=== PATIENT | male | born 1945 | race Caucasian/White ===

== ENCOUNTER → 2019-08-22 14:46 | Outpatient (CLI) | payer MEDICARE, OTHER, SELFPAY ==
--- NOTE | 2019-08-22 | DI.ECHO.S_ITS ---
[place] +---------+ [facility] +---------+ : : [address] : : : : [id number] : : : : Phone: [phone]---------+ Echocardiogram Report + + :Name: ROBERTO HALEY Study Date: 08/22/2019 Height: 73 in : :[facility] Weight: 260 lb : : Gender: Male BSA: 2.4 m2 : :: 1945 Age: 74 yrs BP: 126/82 mmHg: :Reason For Study: Arrhythmia, PVCs : :Ordering Physician: Victoriano Diaz : :Shruti Henry Performed By: Dawn Mi : :Referring: Dr. Garett Haddad : + + Interpretation Summary The patient was in atrial fibrillation with heart rates between 61-85 bpm during the exam. The left ventricle is normal in size. The ejection fraction is estimated to be 60-65%. The right ventricle is grossly normal size. Right ventricular systolic function is at the lower limits of normal. The aortic valve is mildly calcified. There is mildly reduced leaflet mobility. The aortic valve area is 1.7 centimeters squared by planimetry. Ao V2 max: 169.6 cm/sec Ao mean P.3 mmHg There is no hemodynamically significant valvular aortic stenosis. In comparison to previous study aortic stenosis is new. There is mild tricuspid regurgitation. The right ventricular systolic pressure is estimated to be at least 31 mmHg based on an estimated right atrial pressure of 8 mm Hg. The ascending aorta is mildly enlarged. Ascending aorta 3.7 cm in diameter. Previously it was 3.8 cm. There is aortic root sclerosis/calcification. Procedure: A two-dimensional transthoracic echocardiogram with color flow and Doppler was performed. The study quality was technically adequate. Comparison is made with the echocardiogram of 05-19-15. The patient was in atrial fibrillation with heart rates between 61-85 bpm during the exam. Left Ventricle: The left ventricle is normal in size. Proximal septal thickening is noted. There is no echo evidence for significant left ventricular outflow tract obstruction. There is no thrombus. The ejection fraction is estimated to be 60-65%. There has been no significant change since the previous study. There are no focal wall motion abnormalities. Septal motion is consistent with conduction abnormality. Diastolic function could not be accurately assessed due to atrial fibrillation. Right Ventricle: The right ventricle is grossly normal size. Right ventricular systolic function is at the lower limits of normal. Atria: The left atrium is severely dilated. The left atrium has significantly increased in size since the prior echo exam. Right atrial size is normal. Mitral Valve: The mitral valve leaflets appear mildly thickened, but open well. There is mild mitral annular calcification. The mitral valve leaflets are slightly calcified. There is trace mitral regurgitation. Aortic Valve: The aortic valve is trileaflet. The aortic valve is mildly calcified. There is mildly reduced leaflet mobility. The aortic valve area is 1.7 centimeters squared by planimetry. Ao V2 max: 169.6 cm/sec Ao mean P.3 mmHg. There is no hemodynamically significant valvular aortic stenosis. No aortic regurgitation is present. Tricuspid Valve: The tricuspid valve is normal. The right ventricular systolic pressure is estimated to be at least 31 mmHg based on an estimated right atrial pressure of 8 mm Hg. There is mild tricuspid regurgitation. Pulmonic Valve: The pulmonic valve is not well seen, but is grossly normal. There is trace pulmonic regurgitation. Great Vessels: The aortic root is normal size. There is aortic root sclerosis/calcification. The ascending aorta is mildly enlarged. The aortic arch is at the upper limits of normal in size. The IVC is dilated (diameter is greater than 2.1 cm) yet it collapses greater than 50% with a sniff. This suggests a right atrial pressure of 8 mm Hg. Pericardium/ Pleura There is no pericardial effusion. There is no pleural effusion. MMode/2D Measurements & Calculations LVIDd: 4.9 cm Ao root diam: 3.7 cm LVIDs: 2.7 cm Aortic Jxn: 2.5 cm FS: 44.5 % asc Aorta Diam: 3.7 cm EPSS: 1.2 cm Ao Arch Diam (Prox Trans): 3.2 cm IVSd: 1.0 cm LVPWd: 1.0 cm LV short. diameter/BSA (cm/m^2): 2.0 LV sys. diameter/BSA (cm/m^2): 1.1 LA dimension: 5.2 cm RA long axis: 5.8 cm LA A2 area: 36.2 cm2 RA area: 19.7 cm2 LA A4 area: 33.2 cm2 RA vol: 56.4 ml LA length (vol): 7.4 cm RA : 23.5 ml/m2 LA vol: 137.6 ml IVC diam: 2.2 cm LA vol index: 57.2 ml/m2 JOSE (plan): 1.7 cm2 Doppler Measurements & Calculations Ao V2 max: 169.6 cm/sec LVOT Max Lukasz: 64.9 cm/sec Ao V2 mean: 118.7 cm/sec LV V1 max P.7 mmHg Ao max P.5 mmHg LV V1 VTI: 11.7 cm Ao mean P.3 mmHg sev ratio: 0.35 Ao V2 VTI: 33.6 cm MV P1/2t: 72.5 msec TR max lukasz: 240.1 cm/sec MVA(traced): 1.8 cm2 TR max P.1 mmHg PA V2 max: 57.5 cm/sec PA V2 mean: 36.4 cm/sec PA mean P.62 mmHg PA Accel Time: 0.07 sec MV V2 mean: 58.7 cm/sec MV P1/2t max lukasz: 110.4 cm/sec MV mean P.9 mmHg MVA(P1/2t): 3.0 cm2 MV V2 VTI: 18.6 cm Reading Physician:01:09 PM
== END ==
PROVIDERS: PCP Family Medicine; Visit Provider Internal Medicine Cardiovascular Disease
DX: I07.1 Rheumatic tricuspid insufficiency (principal); I49.3 Ventricular premature depolarization; I77.89 Other specified disorders of arteries and arterioles
CPT/HCPCS: 93306

== ENCOUNTER → 2019-10-17 09:02 | Outpatient (CLI) | payer MEDICARE, OTHER, SELFPAY ==
--- NOTE | 2019-10-17 | DI.NM.S_ITS ---
PROCEDURE: NM JERRELL PERF SPECT REST & STR Rest and exercise stress myocardial perfusion SPECT with gated imaging and ejection fraction RADIOPHARMACEUTICAL: 25.8 mCi Tc-99m tetrafosmin IV at rest and 24.2 mCi Tc-99m tetrafosmin IV at peak effect of pharmacological stress. [id number] was performed. INDICATIONS: Ventricular premature depolarization TECHNIQUE: Radiopharmaceutical was injected at peak stress test, and also at rest. SPECT images were obtained. SPECT myocardial perfusion images were displayed in short axis, horizontal long axis, and vertical long axis views. Gated images were reviewed using [employer] software. COMPARISON: None. CARDIAC STRESS: Hemodynamic data: The patient exercised for 4 minutes and 33 seconds and reached target heart rate. There is normal blood pressure and heart rate response to pharmacologic stress. Symptoms: The patient denied anginal chest pain. EKG: Atrial fibrillation present throughout the entire study. No diagnostic changes of ischemia. FINDINGS: Raw data: There is good myocardial uptake of radiotracer. No significant motion artifacts. Zxne-mk-nlffd ratio is 0.32 (normal is less than 0.38 for tetrafosmin tracer). Left ventricle function: Gated images demonstrate normal left ventricular wall thickening. No segmental wall motion abnormalities. No transient ischemic dilation; TID is 0.78 (normal less than 1.3). Left ventricle resting end diastolic volume is 114 mL. Left ventricle stress ejection fraction is 70%; normal range is above 45%. Myocardial perfusion: There is a moderately intense fixed defect in the inferior wall and inferolateral wall that nearly resolves with prone imaging suggesting diaphragmatic attenuation than true infarct. No ischemia. IMPRESSION: Low risk, probably normal treadmill nuclear stress test 1) No definite perfusion evidence of ischemia or infarction. There is a moderately intense fixed defect in the inferior wall and inferolateral wall that nearly resolves with prone imaging suggesting diaphragmatic attenuation than true infarct. 2) Normal left ventricular size, wall motion, and systolic function (EF post stress 70%). 3) No ECG evidence of ischemia. Atrial fibrillation present throughout the study. 4) No angina during the study. 5) Reduced exercise tolerance (7.0 METs, DON +20% on sedentary scale). 105% of target heart rate achieved. 6) No prior nuclear stress test available for comparison. Dictated by: Nighat Rogers MD on 10/18/2019 at 14:26 Approved by: Nighat Rogers MD on 10/18/2019 at 14:32
--- NOTE | 2019-10-17 10:38 | P.PCN_ITS ---
Cardiac Stress Test Report Referral & Results Date Patient Seen: 10/17/19 Requesting provider: Victoriano Henry Indication: PVCs and AFib Rest ECG: Atrial fibrillation with occasional PVC Procedure Note: Today following both written and verbal informed consent the patient was exercised according to a standard Bennett protocol patient went for a total of 4 minutes 33 seconds achieving a maximum heart rate of 169 maximum systolic blood pressure of 155. This is approximately 7.0 METS. Exercise was terminated at this point because of fatigue. Patient was also given Cardiolite through a previously started Hep-Lock IV by the diagnostic imaging staff approximately 1 minute prior to the cessation of exercise. Patient was quickly tachycardic but also quickly return to a heart rate of less than 100 in recovery Somewhat blunted blood pressure response to exercise Occasional to frequent PVCs Function aerobic impairment rates 20% of the sedentary scale No ST-T segment changes identified Impression: No evidence of ischemia Tachycardic response to exercise off patient's beta-gatito therapy in the set ting of chronic atrial fibrillation Please see perfusion imaging report as well Please note: Actual ECG tracings can be found in the PACS system.
== END ==
PROVIDERS: PCP Family Medicine; Visit Provider Internal Medicine Cardiovascular Disease
DX: I49.3 Ventricular premature depolarization (principal); I48.20 Chronic atrial fibrillation, unspecified
CPT/HCPCS: 78452; 93016; 93017; 93018; A9502

== ENCOUNTER → 2022-11-01 07:54 | Outpatient (CLI) | payer MEDICARE, OTHER, SELFPAY ==
--- NOTE | 2022-11-01 | DI.ECHO.S_ITS ---
[place] +---------+ [facility] +---------+ : : [address] : : : : [id number] : : : : Phone: [phone]---------+ Echocardiogram Report + + :Name: ROBERTO HALEY Study Date: 11/01/2022 Height: 73 in : :[facility] ReadingLocation: Weight: 255 lb : : Gender: Male BSA: 2.4 m2 : :: 1945 Age: 77 yrs BP: 132/94 mmHg: :Reason For Study: TRICUSPID REGURGITATION : :Ordering Physician: CARMEN, : :JOAN Performed By: Jacqueline Rm : :Referring: JOAN MORALES : + + Interpretation Summary 1) Mildly increased left ventricular thickness (concentric) withr normal size, normal wall motion, and normal systolic function (EF 60-65%). 2) Normal right ventricular size and function. 3) There is mild aortic stenosis (valve area 1.7cm2, mean gradient 8mmHg, severity ratio 0.38). 4) Compared to the Echo done 08/22/2019, mild aortic stenosis is present on this study. Procedure: A two-dimensional transthoracic echocardiogram with color flow and Doppler was performed. The study quality was technically adequate. Comparison is made with the echocardiogram of 08/22/2019. The heart rate ranged between 65-76 bpm during the study. Left Ventricle: The left ventricle is normal in size. There is mild concentric left ventricular hypertrophy. The ejection fraction is estimated to be 60-65%. Left ventricular systolic function appears normal without focal wall motion abnormalities. Right Ventricle: The right ventricle is normal size. Right ventricular systolic function is mild to moderately reduced. Atria: The left atrium is severely dilated. Right atrial size is normal. There is no Doppler evidence for an interatrial shunt. Mitral Valve: There is mild mitral annular calcification. There is trace mitral regurgitation. Aortic Valve: The aortic valve is severely calcified. There is mild aortic stenosis. No aortic regurgitation is present. Tricuspid Valve: The tricuspid valve is normal in structure and function. There is mild tricuspid regurgitation. The right ventricular systolic pressure is estimated to be at least 38 mmHg based on an estimated right atrial pressure of 8 mm Hg. Pulmonic Valve: The pulmonic valve leaflets are thin and pliable; valve motion is normal. There is no pulmonic valvular regurgitation. Great Vessels: The aortic root is normal size. The ascending aorta is at the upper limits of normal in size. The IVC is dilated (diameter is greater than 2.1 cm) yet it collapses greater than 50% with a sniff. This suggests a right atrial pressure of 8 mm Hg. Pericardium/ Pleura There is no pericardial effusion. There is no pleural effusion. MMode/2D Measurements & Calculations LVIDd: 4.5 cm LVOT diam: 2.4 cm LVIDs: 2.9 cm Ao root diam: 3.5 cm FS: 34.5 % asc Aorta Diam: 3.8 cm IVSd: 1.2 cm Ao Arch Diam (Prox Trans): 3.2 cm LVPWd: 1.1 cm LV short. diameter/BSA (cm/m^2): 1.9 LV sys. diameter/BSA (cm/m^2): 1.2 LA A2 area: 38.1 cm2 RA long axis: 5.9 cm LA A4 area: 32.2 cm2 RA area: 20.3 cm2 LA length (vol): 6.9 cm RA vol: 59.1 ml LA vol: 152.1 ml RA : 24.8 ml/m2 LA vol index: 63.8 ml/m2 IVC diam: 2.8 cm RVD1 (basal): 3.9 cm RVD2 (mid): 3.5 cm TAPSE: 1.4 cm Doppler Measurements & Calculations Ao V2 max: 195.2 cm/sec LVOT Max Lukasz: 82.7 cm/sec Ao V2 mean: 118.9 cm/sec LV V1 max P.7 mmHg Ao max P.4 mmHg LV V1 VTI: 16.6 cm Ao mean P.8 mmHg JOSE(I,D): 1.7 cm2 Ao V2 VTI: 43.7 cm JOSE(V,D): 1.8 cm2 sev ratio: 0.38 JOSE indexed to BSA (cm^2/m^2): 0.69 MV E max lukasz: 92.0 cm/sec TR max lukasz: 271.6 cm/sec MV A max lukasz: 2.2 cm/sec TR max P.5 mmHg MV E/A: 42.5 PA V2 max: 85.8 cm/sec Med Peak E' Lukasz: 8.4 cm/sec PA V2 mean: 61.4 cm/sec E/E' med: 10.9 PA mean P.7 mmHg Lat Peak E' Lukasz: 9.8 cm/sec PA pr(Accel): 32.8 mmHg E/E' lat: 9.4 E/e' average: 10.1 MV dec time: 0.17 sec SV(OT): 72.1 ml Reading Physician:09:42 AM
== END ==
PROVIDERS: PCP Family Medicine; Referring Provider Internal Medicine Cardiovascular Disease; Visit Provider Internal Medicine Cardiovascular Disease
DX: I08.3 Combined rheumatic disorders of mitral, aortic and tricuspid valves (principal); I48.20 Chronic atrial fibrillation, unspecified; I49.3 Ventricular premature depolarization
CPT/HCPCS: 93306

== ENCOUNTER → 2024-04-04 | Outpatient (CLI) | payer MEDICARE, SELFPAY ==
--- NOTE | 2024-04-04 12:43 | DI.ECHO.S_ITS ---
[place] +---------+ Hospital : : [address] : : [id number] : : Phone: [phone] Echocardiogram Report + + :Name: ROBERTO HALEY Study Date: 04/04/2024 Height: 73 in : :[facility] ReadingLocation: Weight: 250 lb : : Gender: Male BSA: 2.4 m2 : :: 1945 Age: 79 yrs BP: 124/89 mmHg: :Reason For Study: AORTIC VALVE STENOSIS : :Ordering Physician: LILIAM, : :YOAN Pineda Performed By: Walker Torres : :Referring: YOAN RICKETTS : + + Interpretation Summary The patient was in atrial fibrillation with controlled ventricular rate during the exam. There is mild concentric left ventricular hypertrophy. The ejection fraction is estimated to be 65-70%. The right ventricle is mildly dilated. The right ventricular systolic function is normal. Aortic valve heavily calcified. Not well-seen in short axis view. There is a severely decreased aortic cusp mobility. However, peak aortic velocity 1.9 m/s which appears to be underestimated in this study. Stroke-volume index about 36.67 mL/mA?. The IVC is of normal diameter and collapses greater than 50% with a sniff. This suggests a low right atrial pressure of 3 mm Hg. Discussed with pv design and installation technician to reevaluate aortic stenosis. Procedure: A two-dimensional transthoracic echocardiogram with color flow and Doppler was performed. The study quality was technically adequate. Comparison is made with the echocardiogram of 11/01/2022. The heart rate ranged between 65-87 bpm during the study. The patient was in atrial fibrillation with controlled ventricular rate during the exam. Left Ventricle: Left ventricular wall thickness is mildly increased. The left ventricle is normal in size. There is mild concentric left ventricular hypertrophy. There is no thrombus. The ejection fraction is estimated to be 65-70%. There are no focal wall motion abnormalities. E/E' med: 11.2. Right Ventricle: The right ventricle is mildly dilated. The right ventricular systolic function is normal. Atria: The left atrium is severely dilated. There has been no significant change since the previous study. The right atrium is mild to moderately dilated. The interatrial septum grossly appears intact with no obvious evidence for an atrial septal defect. Mitral Valve: MAC. There is mild to moderate mitral annular calcification. There is no mitral valve stenosis. There has been no significant change since the previous study. There is trace mitral regurgitation. Aortic Valve: Aortic valve heavily calcified. Not well-seen in short axis view. There is a severely decreased aortic cusp mobility. However, peak aortic velocity 1.9 m/s which appears to be underestimated in this study. Stroke- volume index about 36.67 mL/mA?. No aortic regurgitation is present. Tricuspid Valve: The tricuspid valve is not well visualized, but is grossly normal. There is no tricuspid stenosis. There is trace tricuspid regurgitation. The right ventricular systolic pressure is estimated to be at least 26 mmHg based on an estimated right atrial pressure of 3 mm Hg. Pulmonic Valve: The pulmonic valve is not well visualized. There is no pulmonic valvular stenosis. There is no pulmonic valvular regurgitation. Great Vessels: The aortic root is normal size. The ascending aorta is at the upper limits of normal in size. The IVC is of normal diameter and collapses greater than 50% with a sniff. This suggests a low right atrial pressure of 3 mm Hg. Pericardium/ Pleura There is no pericardial effusion. There is no pleural effusion. MMode/2D Measurements & Calculations LVIDd: 4.6 cm LVOT diam: 2.5 cm LVIDs: 2.8 cm Ao root diam: 3.5 cm FS: 38.9 % asc Aorta Diam: 3.7 cm IVSd: 1.4 cm Ao Arch Diam (Prox Trans): 3.0 cm LVPWd: 1.3 cm LV short. diameter/BSA (cm/m^2): 2.0 LV sys. diameter/BSA (cm/m^2): 1.2 LA A2 area: 29.7 cm2 RA long axis: 6.5 cm LA A4 area: 31.8 cm2 RA area: 25.2 cm2 LA length (vol): 7.0 cm RA vol: 82.6 ml LA vol: 114.5 ml RA : 34.9 ml/m2 LA vol index: 48.4 ml/m2 RVD1 (basal): 4.3 cm RVD2 (mid): 3.6 cm TAPSE: 2.2 cm Doppler Measurements & Calculations Ao V2 max: 190.4 cm/sec LVOT Max Lukasz: 103.7 cm/sec Ao V2 mean: 137.9 cm/sec LV V1 max P.3 mmHg Ao max P.5 mmHg LV V1 VTI: 24.1 cm Ao mean P.4 mmHg JOSE(I,D): 3.3 cm2 Ao V2 VTI: 35.7 cm JOSE(V,D): 2.7 cm2 sev ratio: 0.67 JOSE indexed to BSA (cm^2/m^2): 1.4 MV E max lukasz: 100.8 cm/sec TR max lukasz: 242.2 cm/sec MV A max lukasz: 16.4 cm/sec TR max P.5 mmHg MV E/A: 6.1 PA V2 max: 99.7 cm/sec Med Peak E' Lukasz: 9.0 cm/sec PA V2 mean: 65.3 cm/sec E/E' med: 11.2 PA mean P.9 mmHg Lat Peak E' Lukasz: 10.2 cm/sec PA pr(Accel): 43.6 mmHg E/E' lat: 9.9 E/e' average: 10.6 MV dec time: 0.18 sec SV(LVOT): 117.5 ml Reading Physician:10:04 AM
== END ==
PROVIDERS: PCP Family Medicine; Referring Provider Nurse Practitioner; Visit Provider Nurse Practitioner
DX: I34.81 Nonrheumatic mitral (valve) annulus calcification (principal)
CPT/HCPCS: 93306

== ENCOUNTER 2024-05-31 20:38 | Emergency (ER) | payer MEDICARE, SELFPAY ==
[2024-05-31] VITALS (9 sets, daily range): BP systolic 103–117; BP diastolic 64–83; PULSE 76–104; RESP 16; TEMP 36.8; O2SAT 95–100; BMI 33.0
--- NOTE | 2024-05-31 21:02 | DI.US.S_ITS ---
PROCEDURE: US PERIPH VENOUS LOW EXTREM RT INDICATIONS: injury, now pain and swelling TECHNIQUE: Real-time imaging, as well as color and pulse Doppler interrogation, were performed of the lower extremity deep veins from the inguinal ligament to the popliteal fossa, with documentation of the visualized calf veins. COMPARISON: None. FINDINGS: The common femoral, femoral, popliteal, and the visualized calf veins are normally compressible, and free of intraluminal thrombus. Color and pulse Doppler demonstrate normal phasic intraluminal flow. There is normal augmentation response to distal compression maneuver. In the area of trauma, there is an ovoid, fairly circumscribed, subcutaneous complex fluid collection measuring roughly 9.6 x 2.2 x 9.4 cm. No internal or peripheral vascular flow. IMPRESSION: No DVT in the right lower extremity. Complex fluid collection in subcutaneous tissues in the area of trauma, likely seroma or hematoma. Dictated by: Karen Levine M.D. on 05/31/2024 at 22:53 Approved by: Karen Levine M.D. on 05/31/2024 at 22:54
[2024-05-31 21:28] LABS: Add Manual Diff / Slide Review NO; Basophils Absolute Auto 100 /uL (0-100); Basophils Percent Auto 1.4 % (0-2); Eosinophils Absolute Auto 100 /uL (0-450); Eosinophils Percent Auto 1.9 % (2-4); Hematocrit 40.3 % (41-53); Hemoglobin 13.3 g/dL (13.5-17.5); Lymphocytes Absolute Auto 1500 /uL (1100-4500); Lymphocytes Percent Auto 24.6 % (25-40); Mean Corpuscular HGB Conc 33.1 % (30-36); Mean Corpuscular Hemoglobin 27.9 PG (26-34); Mean Corpuscular Volume 84.1 fL (80-100); Monocytes Absolute Auto 400 /uL (0-900); Monocytes Percent Auto 5.7 % (3-14); Neutrophils Absolute Auto 4100 /uL (1500-7000); Neutrophils Percent Auto 66.4 % (50-75); Platelet Count 219 X10^3/uL (150-400); Red Blood Cell Count 4.79 X10^6/uL (4.5-5.9); White Blood Cell Count 6.2 X10^3/uL (4.5-11.0)
--- NOTE | 2024-05-31 21:29 | PC.NURSE ---
Pt states that he ran into a trailer hitch. He never had this issue before when he hit his faith into a hitch, but pain is the same as before but swelling noted with pain and ecchymosis.
[2024-05-31 21:32] LABS: INR 1.9 (0.9-1.3); Prothrombin Time 21.8 SECONDS (9.4-12.5)
[2024-05-31 21:37] LABS: Alanine Aminotransferase 20 IU/L (<50); Albumin 3.9 g/dL (3.5-5.0); Albumin Globulin Ratio 1.4 (1.0-2.8); Alkaline Phosphatase 75 U/L (38-126); Aspartate Aminotransferase 26 IU/L (17-59); BUN Creatinine Ratio 20.2 (6-22); Bilirubin Total 0.8 mg/dL (0.2-1.3); Blood Urea Nitrogen 21 mg/dL (9-20); Carbon Dioxide 31 mmol/L (22-32); Chloride 104 mmol/L (98-107); Estimated Glomerular Filt Rate > 60 mL/min (>60); Globulin 2.8 g/dL (1.7-4.1); Glucose 135 mg/dL (80-110); HEMOLYSIS < 15 (0-50); Potassium 3.4 mmol/L (3.4-5.1); Sodium 137 mmol/L (137-145); Total Protein 6.7 g/dL (6.3-8.2)
[2024-06-01] VITALS: PULSE 80; O2SAT 96
[2024-06-01 00:01] VITALS: BP 102/57; PULSE 80; O2SAT 97
[2024-06-01 00:30] VITALS: BP 117/73; PULSE 72; O2SAT 99
[2024-06-01 01:00] VITALS: BP 119/69; PULSE 78; O2SAT 95
--- NOTE | 2024-06-01 01:23 | ED_ITS ---
HPI - Extremity Injury (Lower) General Chief Complaint: Extremity Injury, Lower Stated Complaint: sent by [place], Rt leg injury Time Seen by Provider: 06/01/24 01:08 Source: patient Mode of arrival: Ambulatory History of Present Illness HPI Narrative: 79-year-old male with leg swelling, seen by clinician [facility] Gomez, concern for clot or compartment syndrome, here for evaluation. History of atrial fibrillation, chronic warfarin anticoagulation, last week had bumped his right leg into a trailer hitch, had injury and swelling, x-ray done [facility] Lawrence reportedly negative for fracture, increasing swelling, recheck today Lance Lawrence, clinical concern for clot formation, hematoma formation, compartment syndrome. No shortness of breath or chest pain. He has sensation in his left leg. Pain is decreasing with elevation while awaiting to be seen in the emergency department. is present as well, says that the leg looks less swollen than it did earlier today after his elevation waiting for evaluation. He can move his ankle up and down, [id number], he can move his knee and hip. He denies swelling to the knee, no knee pain, also no hip pain. Has no swelling to the thigh. No fevers or chills. He has been taking his warfarin, and measured home INR 2.4 today. Related Data Home Medications Medication Instructions Recorded Confirmed metoprolol succinate 25 mg capsule 25 mg PO .COMPLEX 09/21/18 08/05/19 sprinkle, ext. release 24 hr rivaroxaban 20 mg tablet (Xarelto) 20 mg PO DAILY 09/21/18 08/05/19 ResMed AirSense 10 CPAP #1 ea 01/21/19 08/05/19 Previous Rx's Medication Instructions Recorded lisinopril 5 mg tablet 5 mg PO QDAY #60 tabs 08/30/16 albuterol sulfate 90 mcg/actuation 2 puff INH QID #1 inh 11/09/16 aerosol inhaler (Proventil HFA) epinephrine 0.3 mg/0.3 mL 0.3 mg (0.3 mL) IM PRN PRN #2 pkgs 11/11/16 injection, auto-injector (EpiPen 2-Garret) simvastatin 40 mg tablet (Zocor) 40 mg PO HS #90 tabs 06/26/17 triamterene 37.5 1 tab PO QDAY #90 tabs 07/06/17 mg-hydrochlorothiazide 25 mg tablet levothyroxine 150 mcg tablet 150 mcg PO QAM #90 tabs 07/21/17 Allergies Allergy/AdvReac Type Severity Reaction Status Date / Time nut - unspecified [NUT] Allergy Severe ANAPHYLAXIS Verified 05/31/24 21:01 peanut [PEANUT] Allergy Severe THROAT Verified 05/31/24 21:01 SWELLING, PEANUTS AND CASHEWS ARE THE WORST, RX CASHEWS Allergy Severe THROAT Uncoded 05/31/24 21:01 SWELLING, CASHEWS AND PEANUTS ARE THE WORST, RX Review of Systems Review of Systems Narrative: per HPI Patient History Surgical History History of tonsillectomy Social History Smoking Status: Never smoker Smoking Status: Never smoker Substance Use Type: does not use Exam Narrative Exam Narrative: GENERAL: Well-developed patient, in mild distress. HEAD: Atraumatic. Normocephalic. EYES: Pupils equal round and reactive. Extraocular motions intact. No scleral icterus. No injection or drainage. ENT: Nose without bleeding, purulent drainage. Throat without erythema, tonsillar hypertrophy or exudate. Airway patent. NECK: Trachea midline. Non tender CARDIOVASCULAR: Regular rate and rhythm without murmurs, gallops, or rubs. RESPIRATORY: Clear to auscultation. Breath sounds equal bilaterally. No wheezes, rales, or rhonchi. GASTROINTESTINAL: Abdomen soft, non-tender, nondistended. EXTREMITIES: Right leg ecchymoses, some yellow coloration and some component some purple coloration and some components, medial dependent ecchymoses consistent with migration from hematoma more proximal. at bedside believes the right foreleg is much less swollen than when seen in clinic, after he had been elevating his leg while waiting to be evaluated in the emergency department. No Dwight quality anterior medial posterior lateral aspect right foreleg. Lateral aspect proximal with some slight fluctuance, consistent with hematoma. No draining wound, no expressible fluid. Dorsalis pedis pulse palpable, able to plantar flex and dorsiflex right ankle, wiggles toes well. His toes seem pink with brisk cap refill, seems well perfused. Intact to light touch sensation. No obvious injuries to the right leg at the level of the knee and more proximal. No left lower extremity injuries obvious. BACK: Nontender without deformity or crepitance. No flank tenderness. NEURO: AOx3. SKIN: No rash or erythema of visible areas Initial Vital Signs Initial Vital Signs: Vital Signs Temperature 98.2 F 05/31/24 20:40 Pulse Rate 89 05/31/24 20:40 Respiratory Rate 16 05/31/24 20:40 Blood Pressure 117/83 05/31/24 20:40 Pulse Oximetry 98 05/31/24 20:40 Oxygen Delivery Method Room Air 05/31/24 20:40 Course Orders Ordered: ED Orders 05/31/24 21:02 [facility] venous low extrem rt Stat 05/31/24 21:15 Complete Blood Count AUTO DIFF Stat Comprehensive Metabolic Panel Stat Prothrombin Time INR Stat Vital Signs Vital signs: Vital Signs - 8 hr 05/31/24 20:40 05/31/24 20:48 05/31/24 20:49 Temperature 98.2 F Pulse Rate 89 95 H Respiratory Rate 16 Blood Pressure 117/83 117/83 Pulse Oximetry 98 98 Oxygen Delivery Method Room Air 05/31/24 21:00 05/31/24 21:05 05/31/24 21:05 Temperature Pulse Rate 94 H 97 H Respiratory Rate Blood Pressure 103/64 Pulse Oximetry 96 97 Oxygen Delivery Method 05/31/24 21:30 05/31/24 21:30 05/31/24 22:55 Temperature Pulse Rate 76 104 H Respiratory Rate Blood Pressure 105/64 Pulse Oximetry 95 Oxygen Delivery Method 05/31/24 23:00 05/31/24 23:00 05/31/24 23:30 Temperature Pulse Rate 79 Respiratory Rate Blood Pressure 113/75 115/75 Pulse Oximetry 98 Oxygen Delivery Method 05/31/24 23:30 06/01/24 00:00 06/01/24 00:01 Temperature Pulse Rate 83 80 80 Respiratory Rate Blood Pressure Pulse Oximetry 100 96 97 Oxygen Delivery Method 06/01/24 00:01 06/01/24 00:30 06/01/24 00:30 Temperature Pulse Rate 72 Respiratory Rate Blood Pressure 102/57 L 117/73 Pulse Oximetry 99 Oxygen Delivery Method 06/01/24 01:00 06/01/24 01:00 06/01/24 01:29 Temperature Pulse Rate 78 82 Respiratory Rate Blood Pressure 119/69 Pulse Oximetry 95 99 Oxygen Delivery Method 06/01/24 01:30 Temperature Pulse Rate Respiratory Rate Blood Pressure 123/79 Pulse Oximetry Oxygen Delivery Method MDM - Extremity Injury (Lower) Lab Data Attestation: I reviewed the patient's lab results. 05/31/24 21:15 05/31/24 21:15 Labs: Lab Results 05/31/24 Range/Units 21:15 WBC 6.2 (4.5-11.0) X10^3/uL RBC 4.79 (4.5-5.9) X10^6/uL Hgb 13.3 L (13.5-17.5) g/dL Hct 40.3 L (41-53) % MCV 84.1 (80-100) fL MCH 27.9 (26-34) PG MCHC 33.1 (30-36) % RDW 14.0 (11.6-14.8) % Plt Count 219 (150-400) X10^3/uL Neut % (Auto) 66.4 (50-75) % Lymph % (Auto) 24.6 L (25-40) % [place] % (Auto) 5.7 (3-14) % Eos % (Auto) 1.9 L (2-4) % Baso % (Auto) 1.4 (0-2) % Neut # (Auto) 4100 (8208-1349) /uL Lymph # (Auto) 1500 (4176-2236) /uL [place] # (Auto) 400 (0-900) /uL Eos # (Auto) 100 (0-450) /uL Baso # (Auto) 100 (0-100) /uL PT 21.8 H (9.4-12.5) SECONDS INR 1.9 H (0.9-1.3) Sodium 137 (137-145) mmol/L Potassium 3.4 (3.4-5.1) mmol/L Chloride 104 (98-107) mmol/L Carbon Dioxide 31 (22-32) mmol/L BUN 21 H (9-20) mg/dL Creatinine 1.04 (0.66-1.25) mg/dL Estimated GFR > 60 (>60) mL/min BUN/Creatinine Ratio 20.2 (6-22) Glucose 135 H (80-110) mg/dL Calcium 9.0 (8.4-10.2) mg/dL Total Bilirubin 0.8 (0.2-1.3) mg/dL AST 26 (17-59) IU/L ALT 20 (<50) IU/L Alkaline Phosphatase 75 (38-126) U/L Total Protein 6.7 (6.3-8.2) g/dL Albumin 3.9 (3.5-5.0) g/dL Globulin 2.8 (1.7-4.1) g/dL Albumin/Globulin Ratio 1.4 (1.0-2.8) Imaging Data US venous doppler lower extremity : Radiologist's Impression: [address] [address] Ultrasound Report Signed Patient: Meliton Cuevas MR#: [id number] : 1945 Acct:[id number] Age/Sex: 79 / M Date of Service: 05/31/24 Loc: ED Accession Number: [id number] Procedure: US periph venous low extrem rt Ordering Provider: Paco Youssef MD PROCEDURE: US PERIPH VENOUS LOW EXTREM RT INDICATIONS: injury, now pain and swelling TECHNIQUE: Real-time imaging, as well as color and pulse Doppler interrogation, were performed of the lower extremity deep veins from the inguinal ligament to the popliteal fossa, with documentation of the visualized calf veins. COMPARISON: None. FINDINGS: The common femoral, femoral, popliteal, and the visualized calf veins are normally compressible, and free of intraluminal thrombus. Color and pulse Doppler demonstrate normal phasic intraluminal flow. There is normal augmentation response to distal compression maneuver. In the area of trauma, there is an ovoid, fairly circumscribed, subcutaneous complex fluid collection measuring roughly 9.6 x 2.2 x 9.4 cm. No internal or peripheral vascular flow. IMPRESSION: No DVT in the right lower extremity. Complex fluid collection in subcutaneous tissues in the area of trauma, likely seroma or hematoma. Dictated by: Karen Levine M.D. on 05/31/2024 at 22:53 Approved by: Karen Levine M.D. on 05/31/2024 at 22:54 [facility] Narrative Medical decision making narrative: 79-year-old male seen recent injury to the lower leg, prior outside facility x- ray reportedly negative for fracture, has been walking around, taking same warfarin, increased swelling today, seen in clinic again on [place], some concern about clot versus hematoma versus compartment syndrome, versus combo. Here for further evaluation. Afebrile, sirs screen negative. On exam has hematoma changes to the right lower extremity, while awaiting evaluation with elevation and patient feel that his swelling is significantly improved from earlier today. He has no hard woody skin soft tissue changes to anterior posterior mediolateral compartments right foreleg areas on examination, can plantar flex and dorsiflex easily with his ankle, toes and foot seem well perfused. Ultrasound study pending. Labs sent. Ultrasound shows no venous clot, does show some hematoma versus seroma changes, see radiologist's report No evidence for DVT on imaging, no cellulitis suspected, no compartment syndrome clinically suspected at this time. Patient encouraged to continue his warfarin anticoagulation for atrial fibrillation. Consider elevation of the leg more often, though he does want to be continuing his activity. Recheck examination Monday in the clinic of Lance. Contact information also provided for orthopedic surgery Dr. Almaraz, if they would like to pursue a 2nd opinion from an orthopedic surgeon. However compartment syndrome does not seem likely by examination now, and swelling significantly decreased per patient and with elevation during ED evaluation Critical Care Time Critical Care Time Critical Care Time: Yes Total Critical Care Time: 31 Attestation: The high probability of a clinically significant, sudden or life threatening deterioration of the [musculoskeletal, peripheral vascular] system(s) required my full and direct attention, intervention and personal management. The aggregate critical care time was [31] minutes. This time is in addition to time spent performing reported procedures but includes the following: [x] Data Review and interpretation [x] Patient assessment and monitoring of vital signs [x] Documentation [x] Medication orders and management Discharge Plan Departure Patient Disposition: Home Clinical Impression: Hematoma of right lower leg Activity Restrictions/Additional Instructions: Recent injury bumping right leg on a trailer hitch, prior outside facility x- rays were negative for fracture, taking warfarin anticoagulation for atrial fibrillation, bruising and increased swelling, repeat clinic visit today, concerns clinically for hematoma versus clot formation in the veins versus development of compartment syndrome. During evaluation in the emergency department you had elevation of your leg for quite some time, ultrasound study done showing no blood clots, did show hematoma/seroma changes in the subcutaneous tissue, consistent with resolving injury, no active bleeding or bloody suspected. No hard Dwight palpation to different parts of your foreleg at this time, decreased swelling to the leg with elevation time in the emergency department, improved symptoms, able to move ankle up and down easily, foot and toes seem well perfused with good blood supply at this time. Clinical exam not consistent with compartment syndrome at this time. There seems to be a clinical response to elevation of the extremity while awaiting ED evaluation, consider increased time of elevation in between your activities upright, continue taking your warfarin. Clinically recheck exam [facility] on Monday. Consider orthopedic surgery 2nd opinion, contact information given for Dr. Almaraz. Rechecked to this/nearest emergency department for any change worsening symptoms or any concerns prior Prescriptions: No Action lisinopril 5 MG tablet 5 mg PO QDAY Qty: 60 1RF albuterol sulfate [Proventil HFA] 90 MCG/PUFF HFA aerosol inhaler 2 puff INH QID Qty: 1 1RF epinephrine [EpiPen 2-Garret] 0.3 MG/0.3 ML auto-injector 0.3 mg IM PRN PRNQty: 2 0RF simvastatin [Zocor] 40 MG tablet 40 mg PO HS Qty: 90 1RF triamterene-hydrochlorothiazid 37.5 MG/25 MG tablet 1 tab PO QDAY Qty: 90 0RF levothyroxine 150 MCG tablet 150 mcg PO QAM Qty: 90 1RF rivaroxaban [Xarelto] 20 mg tablet 20 mg PO DAILY metoprolol succinate 25 mg cap,sprinkle,ER 24hr dose pack 25 mg PO .COMPLEX Patient Comments: 25 mg PO 2 tabs AM and 1 tab PM; Rx Instructions: 25 mg PO 2 tabs AM and 1 tab PM; (DME) ResMed AirSense 10 CPAP Qty: 1 Dose Instruction: As directed Patient Comments: Pressure: 7-14 cmH2O DME: [facility] Rx Instructions: As directed Referrals: Dawn Brink MD [Primary Care Provider] - Stand Alone Forms: Patient Portal/API
[2024-06-01 01:29] VITALS: PULSE 82; O2SAT 99
[2024-06-01 01:30] VITALS: BP 123/79
== END 2024-06-01 01:52 | disposition home or self-care (01) ==
PROVIDERS: Emergency Provider Emergency Medicine; PCP Family Medicine
DX: S80.11XA Contusion of right lower leg, initial encounter (principal); W22.8XXA Striking against or struck by other objects, initial encounter; Z79.01 Long term (current) use of anticoagulants
CPT/HCPCS: 36415; 80053; 85025; 85610; 93971; 99283; 99284

== ENCOUNTER → 2025-04-03 08:39 | Outpatient (CLI) | payer MEDICARE, SELFPAY ==
--- NOTE | 2025-04-03 08:40 | DI.ECHO.S_ITS ---
[facility] : : [address] : [address] [address] : : [id number] : : Phone: [phone] Echocardiogram Report + + :Name: ROBERTO HALEY Study Date: 04/03/2025 Height: 73 in : :[facility] ReadingLocation: Weight: 260 lb : : Gender: Male BSA: 2.4 m2 : :: 1945 Age: 80 yrs BP: 119/89 mmHg: :Reason For Study: AORTIC STENOSIS : :Ordering Physician: CARMEN, : :JOAN Performed By: Elvin Mendez : :Referring: JOAN MORALES : + + Interpretation Summary The patient was in atrial fibrillation with controlled ventricular rate during the exam. The left ventricle is normal in size. The left ventricular ejection fraction is normal. The ejection fraction is estimated to be 60-65%. The right ventricle is at the upper limits of normal in size. The right ventricular systolic function is normal. Overall moderate to heavy calcification of the aortic valve with moderate to severely reduced mobility. The peak aortic valve velocity 2.37 m/s, mean gradient 11 mmHg, Stroke-volume index 27 mL/mA?. aortic valve area about 1.4 cm square with severity index 0.39. Overall not a severe aortic stenosis. Previous aortic valve velocity 1.9 m/s. Overall aortic stenosis in the moderate range. There is mild tricuspid regurgitation. The IVC is dilated (diameter is greater than 2.1 cm) yet it collapses greater than 50% with a sniff. This suggests a right atrial pressure of 8 mm Hg. There is aortic root sclerosis/calcification. Procedure: A two-dimensional transthoracic echocardiogram with color flow and Doppler was performed. The study quality was technically adequate. Comparison is made with the echocardiogram of 04/04/2024. The heart rate ranged between 61-79 bpm during the study. The patient was in atrial fibrillation with controlled ventricular rate during the exam. Left Ventricle: The left ventricle is normal in size. Left ventricular wall thickness is mildly increased. There is no thrombus. The ejection fraction is estimated to be 60-65%. The left ventricular ejection fraction is normal. There are no focal wall motion abnormalities. E/E' med: 11.0. Diastolic function could not be accurately assessed due to atrial fibrillation. Right Ventricle: The right ventricle is at the upper limits of normal in size. The right ventricular systolic function is normal. Atria: The left atrium is severely dilated. There has been no significant change since the previous study. The right atrium is moderately dilated. There is no Doppler evidence for an interatrial shunt. Mitral Valve: There is moderate mitral annular calcification. The mitral valve leaflets appear to open well. There is no mitral valve stenosis. There is trace mitral regurgitation. Aortic Valve: The aortic valve is trileaflet. Overall moderate to heavy calcification of the aortic valve with moderate to severely reduced mobility. The peak aortic valve velocity 2.37 m/s, mean gradient 11 mmHg, Stroke-volume index 27 mL/mA?. aortic valve area about 1.4 cm square with severity index 0.39. Overall not a severe aortic stenosis. Previous aortic valve velocity 1.9 m/s. Overall aortic stenosis in the moderate range. The calculated aortic valve area is 1.5 cm2. The peak aortic velocity is 2.37 m/sec. The aortic valve mean gradient is 11 mmHg. There is trace aortic regurgitation. Tricuspid Valve: The tricuspid valve leaflets are thin and pliable. There is mild tricuspid regurgitation. The right ventricular systolic pressure is estimated to be at least 31 mmHg based on an estimated right atrial pressure of 8 mm Hg. Pulmonic Valve: The pulmonic valve is not well seen, but is grossly normal. There is a trace or physiologic amount of pulmonic regurgitation. Great Vessels: The aortic root is normal size. There is aortic root sclerosis/calcification. The ascending aorta is normal in size. The aortic arch is normal in size. The IVC is dilated (diameter is greater than 2.1 cm) yet it collapses greater than 50% with a sniff. This suggests a right atrial pressure of 8 mm Hg. Pericardium/ Pleura There is no pericardial effusion. MMode/2D Measurements & Calculations LVIDd: 5.1 cm LVOT diam: 2.2 cm LVIDs: 2.6 cm Ao root diam: 3.4 cm FS: 49.2 % asc Aorta Diam: 3.2 cm IVSd: 1.1 cm Ao Arch Diam (Prox Trans): 2.8 cm LVPWd: 1.2 cm LV short. diameter/BSA (cm/m^2): 2.1 LV sys. diameter/BSA (cm/m^2): 1.1 LA A2 area: 32.0 cm2 RA long axis: 7.0 cm LA A4 area: 31.2 cm2 RA area: 26.6 cm2 LA length (vol): 7.5 cm RA vol: 85.9 ml LA vol: 113.5 ml RA : 35.7 ml/m2 LA vol index: 47.2 ml/m2 IVC diam: 2.2 cm RVD1 (basal): 3.6 cm RVD2 (mid): 3.0 cm TAPSE: 1.7 cm Doppler Measurements & Calculations Ao V2 max: 237.1 cm/sec LVOT Max Lukasz: 96.5 cm/sec Ao V2 mean: 149.1 cm/sec LV V1 max P.7 mmHg Ao max P.5 mmHg LV V1 VTI: 17.7 cm Ao mean P.9 mmHg JOSE(I,D): 1.4 cm2 Ao V2 VTI: 45.5 cm JOSE(V,D): 1.5 cm2 sev ratio: 0.39 JOSE indexed to BSA (cm^2/m^2): 0.59 MV E max lukasz: 108.3 cm/sec TR max lukasz: 240.4 cm/sec Med Peak E' Lukasz: 9.8 cm/sec TR max P.1 mmHg E/E' med: 11.0 PA V2 max: 131.7 cm/sec Lat Peak E' Lukasz: 10.3 cm/sec PA V2 mean: 98.0 cm/sec E/E' lat: 10.5 PA mean P.2 mmHg E/e' average: 10.8 PA pr(Accel): 58.4 mmHg MV dec time: 0.13 sec SV(LVOT): 65.0 ml Reading Physician:06:20 PM
== END ==
LOC: ECHO 08:40
PROVIDERS: PCP Family Medicine; Referring Provider Internal Medicine Cardiovascular Disease; Visit Provider Internal Medicine Cardiovascular Disease
DX: I08.2 Rheumatic disorders of both aortic and tricuspid valves (principal)
CPT/HCPCS: 93306